=== PATIENT | female | born 1995 | race African-American/Black ===

== ENCOUNTER 2018-01-31 22:14 | Emergency (ER) | payer OTHER ==
[2018-02-01 01:26] LABS: ADD MAN DIFF? NO
[2018-02-01 01:30] LABS: WHITE BLOOD COUNT 9.9 10^3/ul (4.8-10.8)
[2018-02-01 01:30] LABS: BASOPHILS % 0.3 % (0.0-2.0); EOSINOPHILS # 0.1 10^3/ul (0.0-0.5); EOSINOPHILS % 0.8 % (0.0-7.0); HEMATOCRIT 38.2 % (37.0-47.0); HEMOGLOBIN 12.3 g/dl (12.0-16.0); LYMPHOCYTES # 2.6 10^3/ul (0.8-2.9); LYMPHOCYTES % 25.7 % (15.0-51.0); MEAN CORPUSCULAR HEMOGLOBIN 26.3 pg (29.0-33.0); MEAN CORPUSCULAR HGB CONC 32.2 g/dl (32.0-37.0); MEAN CORPUSCULAR VOLUME 81.6 fl (82.0-101.0); MEAN PLATELET VOLUME 10.6 fl (7.4-10.4); MONOCYTE # 0.6 10^3/ul (0.3-0.9); MONOCYTES % 5.6 % (0.0-11.0); NEUTROPHIL # 6.7 10^3/ul (1.6-7.5); NEUTROPHILS % 67.2 % (39.0-77.0); PLATELET COUNT 224 10^3/UL (140-415); RED BLOOD COUNT 4.68 10^6/ul (4.20-5.40); RED CELL DISTRIBUTION WIDTH 14.3 % (11.5-14.5)
[2018-02-01 01:48] LABS: ADD UMIC YES; UR ASCORBIC ACID NEGATIVE (NEGATIVE); UR BACTERIA MODERATE /HPF (NONE SEEN); UR BILIRUBIN (Dip) NEGATIVE (NEGATIVE); UR BLOOD (Dip) 3+ mg/dL (NEGATIVE); UR CLARITY CLOUDY (CLEAR); UR COLOR YELLOW (YELLOW); UR GLUCOSE (Dip) NEGATIVE (NEGATIVE); UR KETONES (Dip) TRACE mg/dL (NEGATIVE); UR LEUKOCYTE ESTERASE (Dip) TRACE Leu/ul (NEGATIVE); UR MUCUS FEW /HPF (NONE SEEN); UR NITRITE (Dip) NEGATIVE (NEGATIVE); UR RBC 1 /HPF (0-5); UR SPECIFIC GRAVITY (Dip) 1.026 (1.003-1.030); UR SQUAMOUS EPITHELIAL CELL FEW /HPF (FEW); UR TOTAL PROTEIN (Dip) NEGATIVE (NEGATIVE); UR UROBILINOGEN (Dip) NEGATIVE (NEGATIVE); UR WBC 19 /HPF (0-5)
== END 2018-02-01 03:24 | disposition home or self-care (01) ==
LOC: FTE 02-01 03:24
DX: O20.9 Hemorrhage in early pregnancy, unspecified (principal); O23.11 Infections of bladder in pregnancy, first trimester; Z3A.13 13 weeks gestation of pregnancy
CPT/HCPCS: 76805; 81001; 84702; 85025; 86900; 86901; 99284-25

== ENCOUNTER 2018-08-10 14:57 | Inpatient (IN) | payer OTHER ==
[2018-08-10] MEDS ORDERED: CARBOPROST 250 MCG INJ IM (15:30)
[2018-08-10] MEDS ORDERED: IBUPROFEN 600 MG TAB PO (15:30)
[2018-08-10] MEDS ORDERED: OXYTOCIN 30 UNITS/LR 500 ML IV ×2 (15:30)
[2018-08-10] MEDS ORDERED: LIDOCAINE 1% (MPF) 30 ML INJ INJ (15:30)
[2018-08-10] MEDS ORDERED: BUTORPHANOL 2 MG INJ IV (15:30)
[2018-08-10] MEDS ORDERED: METHYLERGONOVINE 0.2 MG INJ IM (15:30)
[2018-08-10] MEDS ORDERED: MISOPROSTOL 200 MCG TAB PR (15:30)
[2018-08-10] MEDS: LACTATED RINGER'S 1,000 ML IV ×3 (15:56→22:25)
[2018-08-10 16:13] LABS: ADD MAN DIFF? NO
[2018-08-10 16:15] LABS: BASOPHILS % 0.2 % (0.0-2.0); EOSINOPHILS # 0.1 10^3/ul (0.0-0.5); EOSINOPHILS % 0.4 % (0.0-7.0); HEMOGLOBIN 11.4 g/dl (12.0-16.0); LYMPHOCYTES # 2.1 10^3/ul (0.8-2.9); LYMPHOCYTES % 16.6 % (15.0-51.0); MEAN CORPUSCULAR HEMOGLOBIN 27.6 pg (29.0-33.0); MEAN CORPUSCULAR HGB CONC 31.7 g/dl (32.0-37.0); MEAN CORPUSCULAR VOLUME 87.2 fl (82.0-101.0); MEAN PLATELET VOLUME 10.8 fl (7.4-10.4); MONOCYTE # 0.9 10^3/ul (0.3-0.9); MONOCYTES % 7.1 % (0.0-11.0); NEUTROPHIL # 9.4 10^3/ul (1.6-7.5); NEUTROPHILS % 73.9 % (39.0-77.0); PLATELET COUNT 172 10^3/UL (140-415); RED BLOOD COUNT 4.13 10^6/ul (4.20-5.40); RED CELL DISTRIBUTION WIDTH 15.1 % (11.5-14.5)
[2018-08-10 16:15] LABS: WHITE BLOOD COUNT 12.7 10^3/ul (4.8-10.8)
[2018-08-10 16:34] LABS: INR 0.89; PROTIME 12.2 Sec (11.9-14.9)
[2018-08-10 16:35] LABS: PARTIAL THROMBOPLASTIN TIME 29.7 Sec (23.0-35.0)
[2018-08-10] MEDS: AMPICILLIN 2 GM/NS (PMX) 100 ML IVPB (16:44)
[2018-08-10] MEDS: OXYTOCIN 30 UNITS/LR 500 ML IV (17:31)
[2018-08-10 18:20] LABS: HEPATITIS B SURFACE ANTIGEN NEGATIVE (NEGATIVE)
[2018-08-10] MEDS: AMPICILLIN 1 GM/NS (PMX) 50 ML IVPB (21:11)
[2018-08-10] MEDS ORDERED: FENTAnyl 2MCG/ML-ROPIV 0.2% 100 ML (21:39)
[2018-08-10] MEDS ORDERED: ONDANSETRON 4 MG INJ IV (22:00)
[2018-08-10] MEDS ORDERED: NALOXONE (0.4 MG/ML) INJ IV (22:00)
[2018-08-10] MEDS ORDERED: DIPHENHYDRAMINE 50 MG INJ IV (22:00)
[2018-08-11] MEDS: AMPICILLIN 1 GM/NS (PMX) 50 ML IVPB ×4 (00:47→15:44)
[2018-08-11] MEDS: LACTATED RINGER'S 1,000 ML IV ×2 (01:22→10:56)
[2018-08-11] MEDS: FENTAnyl 2MCG/ML-ROPIV 0.2% 100 ML BAG EPI ×3 (04:44→14:29)
[2018-08-11] MEDS: MINERAL OIL LIGHT 10 ML VIAL TOP (18:30)
[2018-08-11] MEDS: OXYTOCIN 30 UNITS/LR 500 ML IV (19:03)
[2018-08-11] MEDS ORDERED: OXYTOCIN 30 UNITS/LR 500 ML IV ×2 (19:06→19:30)
[2018-08-11] MEDS ORDERED: MISOPROSTOL 200 MCG TAB PR (19:30)
[2018-08-11] MEDS ORDERED: METHYLERGONOVINE 0.2 MG INJ IM (19:30)
[2018-08-11] MEDS ORDERED: CARBOPROST 250 MCG INJ IM (19:30)
[2018-08-11 22:15] LABS: RAPID PLASMA REAGIN NONREACTIVE (NR)
[2018-08-11] MEDS: LACTATED RINGER'S 1,000 ML IV* (23:35)
[2018-08-12] MEDS: IBUPROFEN 600 MG TAB PO ×4 (00:16→18:38)
[2018-08-12] MEDS: BENZOCAINE 20% 56 ML SPRAY TOP (00:17)
[2018-08-12] MEDS: LANOLIN HPA 1 PKT TOP (00:17)
[2018-08-12] MEDS: LACTATED RINGER'S 1,000 ML IV* (03:06)
[2018-08-12] MEDS: WITCH HAZEL/GLYCERIN PAD PR (05:54)
[2018-08-12 08:24] LABS: ADD MAN DIFF? NO
[2018-08-12 08:28] LABS: WHITE BLOOD COUNT 19.7 10^3/ul (4.8-10.8)
[2018-08-12 08:28] LABS: BASOPHILS % 0.2 % (0.0-2.0); EOSINOPHILS # 0.1 10^3/ul (0.0-0.5); EOSINOPHILS % 0.6 % (0.0-7.0); HEMATOCRIT 32.1 % (37.0-47.0); HEMOGLOBIN 10.3 g/dl (12.0-16.0); LYMPHOCYTES # 3.7 10^3/ul (0.8-2.9); LYMPHOCYTES % 18.6 % (15.0-51.0); MEAN CORPUSCULAR HEMOGLOBIN 27.7 pg (29.0-33.0); MEAN CORPUSCULAR HGB CONC 32.1 g/dl (32.0-37.0); MEAN CORPUSCULAR VOLUME 86.3 fl (82.0-101.0); MONOCYTE # 1.4 10^3/ul (0.3-0.9); MONOCYTES % 6.9 % (0.0-11.0); NEUTROPHIL # 14.2 10^3/ul (1.6-7.5); NEUTROPHILS % 72.2 % (39.0-77.0); PLATELET COUNT 144 10^3/UL (140-415); RED BLOOD COUNT 3.72 10^6/ul (4.20-5.40); RED CELL DISTRIBUTION WIDTH 14.7 % (11.5-14.5)
[2018-08-13] MEDS: IBUPROFEN 600 MG TAB PO ×3 (00:18→11:58)
[2018-08-13] MEDS: HYDROCODONE/APAP (5/325) TAB PO (05:37)
[2018-08-13 06:49] LABS: WHITE BLOOD COUNT 13.1 10^3/ul (4.8-10.8)
[2018-08-13 06:49] LABS: HEMATOCRIT 33.8 % (37.0-47.0); HEMOGLOBIN 10.7 g/dl (12.0-16.0); MEAN CORPUSCULAR HEMOGLOBIN 27.4 pg (29.0-33.0); MEAN CORPUSCULAR HGB CONC 31.7 g/dl (32.0-37.0); MEAN CORPUSCULAR VOLUME 86.4 fl (82.0-101.0); MEAN PLATELET VOLUME 11.1 fl (7.4-10.4); PLATELET COUNT 156 10^3/UL (140-415); RED BLOOD COUNT 3.91 10^6/ul (4.20-5.40); RED CELL DISTRIBUTION WIDTH 14.7 % (11.5-14.5)
[2018-08-13 06:54] LABS: ADD MAN DIFF? YES; POSITIVE DIFF @See below
[2018-08-13] MEDS: DIPHTH/TET/ACEL PERTUSS (ADULT) 0.5 ML VIAL IM* (09:00)
[2018-08-13 09:14] LABS: ACANTHOCYTES 1+ (0-0); ANISOCYTOSIS 1+ (0-0); BAND NEUTROPHILS #M 0.1 10^3/ul (0.0-0.6); BAND NEUTROPHILS % (M) 1 % (0-4); BURR CELLS 2+ (0-0); EOSINOPHILS % (M) 2 % (0-7); GIANT THROMBO% (M) 1 % (0-0); LYMPHOCYTES #M 4.3 10^3/ul (0.8-2.9); LYMPHOCYTES % (M) 33 % (15-51); MONOCYTE #M 0.2 10^3/ul (0.3-0.9); MONOCYTES % (M) 2 % (0-11); OVALOCYTES 1+ (0-0); PLATELET ESTIMATE NORMAL; POIKILOCYTOSIS 2+ (0-0); POLYCHROMASIA 1+ (0-0); PROMYELOCYTES #M 0.2 10^3/ul (0-0); PROMYELOCYTES % (M) 2 % (0-0); SEG NEUT #M 7.9 10^3/ul (1.6-7.5); SEGMENTED NEUTROPHILS (M) % 60 % (39-77); SMUDGE%M 54 % (0-0)
== END 2018-08-13 17:18 | disposition home or self-care (01) | DRG 807 ==
LOC: L-D 14:57 → PP1 08-11 21:04
PROVIDERS: Obstetrics & Gynecology
PROC: 10E0XZZ Delivery of Products of Conception, External Approach (ICD-10-PCS; principal; 2018-08-11)
PROC: 0HQ9XZZ Repair Perineum Skin, External Approach (ICD-10-PCS; 2018-08-11)
DX: O70.0 First degree perineal laceration during delivery (principal); Z37.0 Single live birth; O69.81X0 Labor and delivery complicated by cord around neck, without compression, not applicable or unspecified; Z3A.39 39 weeks gestation of pregnancy
CPT/HCPCS: 62319; 85025; 85610; 85730; 86592; 86850; 86900; 86901; 87340